=== PATIENT | female | born 1975 | race Caucasian/White ===

== ENCOUNTER 2022-08-15 16:14 | Outpatient (CLI) | payer OTHER, SELFPAY ==
--- NOTE | ~2022-08-15 | MM_ITS ---
EXAMINATION: MM screening bautista BI w lolis HISTORY: Screening TECHNIQUE: Craniocaudal and mediolateral oblique 3-D tomosynthesis images were obtained and synthetic 2-D images were generated. CAD analysis was submitted and interpreted. COMPARISON: No prior mammogram is available for comparison at this institution. BREAST PARENCHYMAL COMPOSITION: The breasts are almost entirely fatty. FINDINGS: There is a focal asymmetry superiorly in the right breast on MLO view. There are no suspici ous masses, calcifications or architectural distortion in the left breast to suggest malignancy. IMPRESSION: 1. Focal right breast asymmetry. 2. Recommend spot MLO, mediolateral and exaggerated CC views of the right breast with possible additi onal ultrasound. BI-RADS Category 0: Incomplete: Needs additional imaging evaluation. Reviewed, dictated and finalized at location A. IMPRESSION: 1. Focal right breast asymmetry. 2. Recommend spot MLO, mediolateral and exaggerated CC views of the right breas t with possible additional ultrasound. BI-RADS Category 0: Incomplete: Needs additional imaging evaluation.
== END 2022-08-15 16:15 | disposition home or self-care (01) ==
LOC: ANHIMG 16:17
PROVIDERS: PCP Internal Medicine; Visit Provider Obstetrics & Gynecology
DX: Z12.31 Encounter for screening mammogram for malignant neoplasm of breast (principal); R92.8 Other abnormal and inconclusive findings on diagnostic imaging of breast
CPT/HCPCS: 77063; 77067

== ENCOUNTER 2022-09-06 12:35 | Outpatient (CLI) | payer OTHER, SELFPAY ==
--- NOTE | ~2022-09-06 | MM_ITS ---
EXAMINATION: MM diagnostic bautista RT w lolis HISTORY: Focal right breast asymmetry reported superiorly on MLO screening view of August 15, 2022 TECHNIQUE: Additional 3-D tomosynthesis images of the right were performed and synthetic 2-D images w ere generated. CAD analysis was submitted and interpreted. COMPARISON: 08/15/2022 bilateral screening mammogram FINDINGS: No suspicious mass or architectural distortion or other significant abnormality is noted in the area of concern deep in the posterior upper right breast. IMPRESSION: 1. No mammographic evidence of malignancy 2. Routine annual mammographic screening is recommended BI-RADS Category 1: Negative Reviewed, dictated and finalized at location A.
== END 2022-09-06 12:36 | disposition home or self-care (01) ==
PROVIDERS: PCP Internal Medicine; Visit Provider Obstetrics & Gynecology
DX: R92.8 Other abnormal and inconclusive findings on diagnostic imaging of breast (principal)
CPT/HCPCS: 77061; 77065; G0279

== ENCOUNTER 2023-01-30 11:33 | Outpatient (CLI) | payer OTHER, SELFPAY ==
[2023-01-30 12:18] LABS: SARS-CoV-2 RNA PCR Positive (Negative)
== END 2023-01-30 11:34 | disposition home or self-care (01) ==
LOC: CHSLAB 11:35
PROVIDERS: PCP Internal Medicine; Visit Provider Nurse Practitioner Family
DX: J06.9 Acute upper respiratory infection, unspecified (principal); Z20.822 Contact with and (suspected) exposure to COVID-19
CPT/HCPCS: 87635

== ENCOUNTER 2024-11-07 15:25 | Outpatient (CLI) | payer BC, SELFPAY ==
--- NOTE | ~2024-11-07 | XR_ITS ---
XR knee RT min 4V 11/07/2024 15:37 Indication: Right knee pain Procedure: 4 views right knee Comparison: No prior studies for comparison. Findings: No fracture, subluxation or dislocation. No significant joint effusion. No foreign bodies. There is anatomic alignment. Impression: 1: No significant bone or joint abnormality. Reviewed, dictated and finalized at location B. Impression: 1: No significant bone or joint abnormality.
--- OUTSIDE RECORDS SUMMARY | 2024-11-07 15:28 | XMS_ITS | Continuity of Care Document ---
Author Organization [facility] Address [address] [place] [address] Phone Care Team Providers Care Host Coordinator Name Role Phone Beatriz Wilson MD Unavailable Unavailabl e Allergies, Adverse Reactions, Alerts Substance Reaction Status Criticality codeine Other Active No Information Medications Medication Instructions Dosage Effective Dates (start - stop) Status Comments DEXILANT DR 60 MG CAPSULE 0 DIRECTE - Active PLEASE DISREGA RD THE 30 MG RX AND USE THE 60'S THANKS ONE A DAY SELENIUM 200 MCG TABLET 1 QD-daily - No Longer Active VITAMIN D 1,000 UNITS SOFTGEL 1 DIRECTE - No Longer Active VITAMIN D3 1,000 UNIT TABLET 1 DAILY - No Longer Active ALPRAZOLAM 0.5MG TABS 1 BID - No Longer Active Advance Directives Directive Yes / No Effective Date File Name No Information Encounters Encounter Description Practice Location Reason(s) For Visit Diagnoses Date Provider Providers Copied on Encounter [facility], [address], [place], [place], [id number], tel:[phone] [place] No Information Steve Henderson. [address], [place], [id number]. tel:[phone] [facility], [address], [place], [place], [id number], tel:[phone] [place] ESOPHAGEAL REFLUX Steve Henderson. [address], [place], [id number]. tel:[phone] [facility], [address], [place], [place], [address], tel:[phone] [place] ROUTINE MEDICAL EXAMOTHER PSORIASIS Steve Kuh. [address], [place], [id number]. tel:[phone] [facility], [address], [place], [place], [address], tel:[phone] [place] SCREEN LIPOID DISORDERS Steve Kuh. [address], [place], [address]. tel:[phone] [facility], [address], [place], [place], [address], tel:[phone] [facility] THERAPEUTIC DRUG MONITORCARDIAC MURMURS NEC Steve Kuh. [address], [place], [address]. 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 [address], [place], [address]. tel:[phone] [facility], [address], [place], [place], [address], tel:[phone] [place] No Information Steve Kuh. [address], [place], [address]. tel:[phone] Family History Family Member Type Diagnosis Age At Onset No Information Payers Payer name Insurance type Covered democrat ID Authoriza tion(s) No Information Social History Type Description Quantity Date Captured Comments Sex Female Smoking Status No Information Chief Complaint And Reason For Visit No Information Reason For Referral Reason For Referral No Information History Of Present Illness Encounter Date Complaint History Of Prese nt Illness No Information Functional Status Date Functional Assessmen t No Information Instructions Date Instruction Additional Infor mation No Information Assessments Type Assessment Date No Information Patient Care Teams Name Effective Dates (start - stop) Status Members No Information
== END 2024-11-07 15:26 | disposition home or self-care (01) ==
LOC: CHSIMG 15:26
PROVIDERS: PCP Internal Medicine; Visit Provider Internal Medicine
DX: M25.561 Pain in right knee (principal)
CPT/HCPCS: 73564